=== PATIENT | female | born 1945 | race Caucasian/White ===

== ENCOUNTER 2018-09-02 18:01 | Inpatient (IN) | payer SELFPAY ==
[~2018-09-02] VITALS: Ht 149.9 cm; Wt 63.6 kg
[2018-09-02] MEDS ORDERED: VERA120 PO (18:26)
[2018-09-02 21:22] LABS: BASOPHILS % (AUTO) 1.1 % (0.0-2.0); EOSINOPHILS % (AUTO) 1.5 % (1.0-6.0); HEMATOCRIT 38.6 % (36-46); LYMPHOCYTES # (AUTO) 1.4 K/uL (1.0-4.8); LYMPHOCYTES % (AUTO) 27.4 % (22.0-44.0); MEAN CORPUSCULAR HEMOGLOBIN 31.6 pg (26.0-34.0); MEAN CORPUSCULAR HGB CONC 33.7 G/dL (31.0-37.0); MEAN CORPUSCULAR VOLUME 94 fL (80-100); MONOCYTES # (AUTO) 0.3 K/uL (0.1-1.0); MONOCYTES % (AUTO) 6.5 % (2.0-9.0); NEUTROPHILS # (AUTO) 3.1 K/uL (1.8-7.7); NEUTROPHILS % (AUTO) 63.5 % (40.0-70.0); PLATELET COUNT (AUTO) 242 K/uL (150-450); RED BLOOD CELL COUNT(AUTO) 4.12 MIL/uL (4.00-5.20); RED CELL DISTRIBUTION WIDTH 13.3 % (11.5-14.5)
[2018-09-02 21:47] LABS: ANION GAP 12 mmol/L (8-16); CARBON DIOXIDE 24 mmol/L (22-29); CHLORIDE 105 mmol/L (98-107); CREATININE 0.65 mg/dL (0.60-1.30); GLUCOSE,RANDOM 102 mg/dL (70-110); SODIUM SERUM 141 mmol/L (136-145); UREA NITROGEN, BLOOD 14 mg/dL (7-18)
[2018-09-02 21:51] LABS: PROTHROMBIN TIME 10.1 SEC (9.4-11.6)
[2018-09-02 21:53] LABS: ALANINE AMINOTRANSFERASE 20 U/L (12-78); ALBUMIN 3.5 g/dL (3.4-5.0); ALKALINE PHOSPHATASE 91 U/L (46-116); ASPARTATE AMINOTRANSFERASE 23 U/L (15-37); BILIRUBIN,TOTAL 0.3 mg/dL (0.1-1.0); CREATINE KINASE, TOTAL ONLY 58 U/L (26-192); TOTAL PROTEIN, SERUM 7.3 g/dL (6.4-8.2)
[2018-09-02 21:55] LABS: GLOMERULAR FILTR. RATE CALC > 60 mL/min (>60)
[2018-09-02 22:03] LABS: B-TYPE NATRIURETIC PEPTIDE 223 pg/mL (0-100)
[2018-09-02] MEDS ORDERED: ASPIRIN 325 MG TABLET PO ONE (22:15)
[2018-09-02] MEDS ORDERED: ONDANSETRON HCL 4 MG/2 ML VIAL IVP PRN (22:45)
[2018-09-02] MEDS ORDERED: 0.9% SODIUM CHLORIDE 10 ML SYRINGE IVP PRN (22:45)
[2018-09-02] MEDS ORDERED: ACETAMINOPHEN 325 MG TABLET PO PRN (22:45)
[2018-09-03 00:27] VITALS: BP 132/70
[2018-09-03] MEDS ORDERED: MORPHINE SULFATE 2 MG/ML SYRINGE IVP PRN (05:00)
[2018-09-03] MEDS ORDERED: NITROGLYCERIN 2% (1 GM=INCH) PACKET TP PRN (05:00)
[2018-09-03] MEDS ORDERED: NITROGLYCERIN 0.4 MG SUBLINGUAL TABLET #25 SL PRN (05:00)
[2018-09-03 05:24] VITALS: BP 104/62
[2018-09-03 06:03] LABS: EOSINOPHILS % (AUTO) 2.4 % (1.0-6.0); HEMATOCRIT 35.6 % (36-46); HEMOGLOBIN 12.2 g/dL (12.0-16.0); LYMPHOCYTES # (AUTO) 1.3 K/uL (1.0-4.8); LYMPHOCYTES % (AUTO) 35.6 % (22.0-44.0); MEAN CORPUSCULAR HEMOGLOBIN 32.4 pg (26.0-34.0); MEAN CORPUSCULAR HGB CONC 34.2 G/dL (31.0-37.0); MEAN CORPUSCULAR VOLUME 95 fL (80-100); MONOCYTES # (AUTO) 0.4 K/uL (0.1-1.0); MONOCYTES % (AUTO) 11.5 % (2.0-9.0); NEUTROPHILS # (AUTO) 1.8 K/uL (1.8-7.7); NEUTROPHILS % (AUTO) 49.5 % (40.0-70.0); PLATELET COUNT (AUTO) 228 K/uL (150-450); RED BLOOD CELL COUNT(AUTO) 3.75 MIL/uL (4.00-5.20); RED CELL DISTRIBUTION WIDTH 13.2 % (11.5-14.5)
[2018-09-03 07:30] VITALS: BP 104/56
[2018-09-03 07:31] LABS: ALANINE AMINOTRANSFERASE 22 U/L (12-78); ALKALINE PHOSPHATASE 77 U/L (46-116); ANION GAP 9 mmol/L (8-16); ASPARTATE AMINOTRANSFERASE 21 U/L (15-37); BILIRUBIN,TOTAL 0.3 mg/dL (0.1-1.0); CALCIUM, TOTAL 8.9 mg/dL (8.8-10.5); CARBON DIOXIDE 26 mmol/L (22-29); CHLORIDE 106 mmol/L (98-107); CREATININE 0.74 mg/dL (0.60-1.30); GLUCOSE,RANDOM 90 mg/dL (70-110); POTASSIUM 3.5 mmol/L (3.5-5.1); SODIUM SERUM 141 mmol/L (136-145); TOTAL PROTEIN, SERUM 6.7 g/dL (6.4-8.2); UREA NITROGEN, BLOOD 16 mg/dL (7-18)
[2018-09-03 07:32] LABS: GLOMERULAR FILTR. RATE CALC > 60 mL/min (>60)
[2018-09-03] MEDS: OXYGEN THERAPY IH SCH ×2 (08:00→20:00)
[2018-09-03] MEDS ORDERED: VERAPAMIL HCL 120 MG TABLET PO SCH (09:00)
[2018-09-03] MEDS ORDERED: ASPIRIN 325 MG TABLET PO SCH (09:00)
[2018-09-03 11:29] VITALS: BP 103/64
[2018-09-03 15:18] VITALS: BP 139/62
[2018-09-03 19:50] VITALS: BP 101/57
[2018-09-04 00:08] VITALS: BP 103/57
[2018-09-04 04:15] VITALS: BP 104/57
[2018-09-04 06:56] LABS: CHOL/HDL RATIO 3.4 (3.9-5.7)
[2018-09-04 07:13] VITALS: BP 99/66
[2018-09-04] MEDS: OXYGEN THERAPY IH SCH (08:00)
[2018-09-04] MEDS ORDERED: ASPIRIN 81 MG CHEWABLE TABLET PO SCH (09:00)
[2018-09-04] MEDS ORDERED: ASPI-556 PO (10:24)
[2018-09-04 10:40] VITALS: BP 136/65
== END 2018-09-04 11:00 | disposition home or self-care (01) | DRG 291 ==
LOC: EMS 18:03 → 5S 23:01
PROVIDERS: ADMIT Internal Medicine; ATTEND Internal Medicine
DX: I11.0 Hypertensive heart disease with heart failure (principal); I50.31 Acute diastolic (congestive) heart failure; R07.89 Other chest pain; R00.2 Palpitations; Z80.0 Family history of malignant neoplasm of digestive organs
CPT/HCPCS: 84443; 93005; 93306; G0378